=== PATIENT | female | born 1980 | race Hispanic/Latino ===

== ENCOUNTER 2023-05-12 17:23 | Emergency (ER) | payer OTHER, SELFPAY ==
[2023-05-12] MEDS ORDERED: Lidocaine 1% (PF) 30 ML VIAL ONE (17:46)
[2023-05-12] MEDS ORDERED: Boostrix 0.5 ML (Tdap) VIAL (>/=7 yrs of age) ONE (18:07)
== END 2023-05-12 18:25 | disposition home or self-care (01) ==
LOC: NAV ERS 17:23
DX: S61.211A Laceration without foreign body of left index finger without damage to nail, initial encounter (principal); W26.8XXA Contact with other sharp object(s), not elsewhere classified, initial encounter; Z23 Encounter for immunization
CPT/HCPCS: 12002; 90471; 90715; J2001